=== PATIENT | male | born 1955 | race Caucasian/White ===

== ENCOUNTER → 2017-09-23 | Outpatient (CLI) | payer BC ==
--- NOTE | 2017-09-23 23:02 | MR ---
EXAMINATION TYPE: MR knee LT wo con DATE OF EXAM: 09/23/2017 COMPARISON: NONE HISTORY: Left Knee pain and swelling TECHNIQUE: Multiplanar, multisequence imaging of the left knee is performed without IV contrast. FINDINGS: The anterior and posterior cruciate ligaments are intact. There is knee joint effusion. There is 4.5 x 1.5 cm popliteal cyst. The collateral ligaments are intact. There is patchy abnormal increased sign al in the lateral aspect of the lateral femoral condyle on the T2 images. There is horizontal defect through the anterior and posterior horns of the medial meniscus. There is no definite lateral meniscal tear. There is minor spurring on the patella. There is mild degenerative signal change within the lateral meniscus. IMPRESSION: No evidence of ligamentous tear. Knee joint effusion and popliteal cyst. Horizontal tears of the anterior and posterior horns of the medial meniscus. Degenerative changes wit hin the lateral meniscus. There is a 3 x 1 cm area of bone bruise involving the lateral aspect of the lateral femoral condyle. There is minor hypertrophic spurring of the femoral and tibial condyles.
== END | disposition home or self-care (01) ==
LOC: RADMRIMAIN 19:48
PROVIDERS: ATTEND Orthopaedic Surgery
DX: S83.242A Other tear of medial meniscus, current injury, left knee, initial encounter (principal); M71.22 Synovial cyst of popliteal space [Baker], left knee; S70.12XA Contusion of left thigh, initial encounter; M25.762 Osteophyte, left knee

== ENCOUNTER 2017-11-18 06:02 | Day surgery (SDC) | payer BC ==
[2017-11-15 12:27] VITALS: BMI 28.5
--- NOTE | 2017-11-17 19:20 | HP ---
HISTORY AND PHYSICAL DATE OF SURGERY: 11/18/2017 Pj Vasquez is a 62-year-old patient seen with progressive left knee pain. We discussed treatment options. He elected to proceed with arthroscopy. Consent regarding the procedure was obtained. PAST MEDICAL HISTORY: 1. Hypertension. 2. Hyperlipidemia. 3. Hypothyroidism. PAST SURGICAL HISTORY: 1. Right knee arthroscopy. 2. Biceps tendon surgery. 3. Thyroidectomy. DAILY MEDICATIONS: 1. Atorvastatin. 2. Carvedilol. 3. Losartan. 4. Synthroid. 5. Meloxicam. ALLERGIES: LOVASTATIN. SOCIAL HISTORY: The patient denies current tobacco use. PHYSICAL EVALUATION OF THE LEFT KNEE: Range of motion is 0 to 130 degrees. Tenderness along the medial joint line. Positive medial Bebeto's. Ligaments stable. There is crepitus along the patellofemoral compartment with range of motion. Some pain with patellofemoral compression. Hip rotation without pain. Distal neurovascular exam intact. LEFT KNEE RADIOGRAPHS: Left knee radiographs revealed mild medial lateral and moderate patellofemoral compartment osteoarthritis. Left knee MRI revealed medial meniscal tear. IMPRESSION: Internal derangement, left knee, with medial meniscal tear. PLAN: Left knee arthroscopy with partial meniscectomy and debridement. MMODL / IJN: [id number] /
[~2017-11-18 06:02] MED LIST: DEXAMETHASONE SOD PHOSPHATE 10 MG/ML 1 ML VIAL IV ONE; LACTATED RINGERS 1,000 ML IV SCH; ONDANSETRON 4 MG/2 ML VIAL IVP ONE; ceFAZolin IN SWFI 2 GM/20 ML SYRINGE IVP ONE
[2017-11-18] MEDS ORDERED: LIDOCAINE 1% 20 ML VIAL (10MG/ML) FOR IV START INTRADERMA ONE (06:35)
[2017-11-18] MEDS ORDERED: SCOPOLAMINE 1.5MG/72HR PATCH TRANSDERM ONE (06:39)
[2017-11-18] MEDS ORDERED: PROPOFOL 10 MG/ML 20 ML VIAL IV ONE (07:22)
[2017-11-18] MEDS ORDERED: LIDOCAINE 1% INJ 10MG/ML (20 ML MDV) ONE (07:22)
[2017-11-18] MEDS ORDERED: fentaNYL (PF) 50 MCG/ML 2 ML AMP ONE (07:22)
[2017-11-18] MEDS ORDERED: SODIUM CHLORIDE 0.9% 50 ML with ceFAZolin 2,000 MG IV ONE ×4 (07:22)
[2017-11-18] MEDS ORDERED: MIDAZOLAM 2 MG/2 ML VIAL ONE (07:22)
[2017-11-18] MEDS ORDERED: BUPIVACAINE (PF) 0.25% 30 ML VIAL INTRAARTIC ONE ×2 (07:45→08:13)
[2017-11-18 08:24] VITALS: TEMP 97.7
[2017-11-18] MEDS ORDERED: MORPHINE SULFATE 4 MG/ML SYRINGE IVP ONE (08:31)
[2017-11-18] MEDS ORDERED: KETOROLAC 30 MG/ML 1 ML VIAL IVP ONE (08:32)
[2017-11-18 08:33] VITALS: RESP 16
--- NOTE | 2017-11-18 08:35 | P.OP ---
Date of Procedure: 11/18/17 Preoperative Diagnosis: Internal derangement left knee Postoperative Diagnosis: 1. Tear medial and lateral meniscus left knee 2. Grade 3/4 chondromalacia medial femoral condyle left knee 3. Grade 2/3 chondromalacia patella left knee 4. Partial ACL tear left knee 5. Osteophyte patella left knee 6. Reactive synovitis medial and suprapatellar compartments left knee Procedure(s) Performed: 1. Arthroscopic partial medial and lateral meniscectomy left knee 2. Arthroscopic chondroplasty medial femoral condyle left knee 3. Arthroscopic chondroplasty patella left knee 4. Arthroscopic debridement partial ACL tear left knee 5. Arthroscopic excision osteophyte patella left knee 6. Arthroscopic partial synovectomy medial and super patellar compartments left knee Anesthesia: MALLORIEA, local Surgeon: Sameer Ricks Estimated Blood Loss (ml): 9 Pathology: none sent Condition: stable Disposition: PACU Indications for Procedure: 62-year-old patient seen with progressive left knee pain. After having treatment options discussed, he elected to proceed with arthroscopy. Operative Findings: see description of procedure Description of Procedure: Patient was taken to the operative suite. Patient underwent a general anesthetic by the department of anesthesia. Patient was given preoperative antibiotics. The left lower extremity was placed in a well-padded arthroscopic leg rubio. The left leg was prepped and draped in the normal sterile orthopedic fashion. A lateral parapatellar and suprapatellar incision was made. Trochars were inserted. Arthroscopy was initiated. Suprapatellar pouch revealed diffuse thick reactive synovitis. The patellofemoral joint appeared to articulate congruently. There was grade 2/3 chondromalacia of the patella with some small osteochondral tears. There was a large osteophyte emanating off the medial border of the patella which seem to cause significant chondromalacia changes of the femoral sulcus along the edge.. The scope was guided into the medial gutter. No loose bodies or plica were identified. The scope was then guided into the medial compartment. A medial parapatellar incision was made. Trocar inserted followed by probe. There was a radial tear posterior horn medial meniscus. There were grade 3 and 4 chondromalacia changes of the medial femoral condyle. There was excellent some bony exposure more medially. There was reactive synovitis anteriorly. There were no loose bodies. I performed a partial medial meniscectomy down to stable tissue. I performed a chondroplasty medial femoral condyle. I performed a partial synovectomy. The residual meniscus and osteochondral surfaces were stable. Scope and probe were then guided into the intercondylar notch. Cruciates were identified, probed and found to have some partial tearing of the anterior fibers of the anterior cruciate ligament. I debrided those with a motorized shaver. The residual ACL was stable. The PCL was stable.. The scope and probe were then guided into lateral compartment. There was some superficial tearing along the mid body and posterior horn areas of the lateral meniscus. There were grade 1 chondromalacia changes lateral compartment with no osteochondral tears. There were no loose bodies. I performed a partial lateral meniscectomy down to stable tissue. The residual meniscus was stable. The scope was in guided back into the suprapatellar compartment. I introduced a motorized shaver into the super patellar compartment. I debrided some piecemeal fragments of meniscus. I now introduced a motorized bur and excise that osteophyte. With range of motion of the knee in the osteophyte was completely excised. I now performed a chondroplasty patella followed by partial synovectomy. Shaver was removed. I took one more look on the entire knee and no residual debris was identified. Instruments were now removed from the joint. The joint was infiltrated with .25% Marcaine. Steri-Strips were applied to the portal sites. Sterile dressings were applied. The patient was placed into a KAMRON hose. No tourniquet was utilized. The patient was awakened, transferred to a bed and taken to recovery stable satisfactory condition.
[2017-11-18 09:30] VITALS: BP 126/81; PULSE 60
[2017-11-18] MEDS ORDERED: HYDROcodone/APAP 5-325MG 1 EACH TAB PO ONE (09:35)
== END 2017-11-18 10:09 | disposition home or self-care (01) ==
LOC: OR 06:02
PROVIDERS: ATTEND Orthopaedic Surgery
DX: M23.322 Other meniscus derangements, posterior horn of medial meniscus, left knee (principal); M23.352 Other meniscus derangements, posterior horn of lateral meniscus, left knee; S83.512A Sprain of anterior cruciate ligament of left knee, initial encounter; M25.762 Osteophyte, left knee; M65.862 Other synovitis and tenosynovitis, left lower leg; M94.262 Chondromalacia, left knee; I10 Essential (primary) hypertension; E89.0 Postprocedural hypothyroidism; E78.5 Hyperlipidemia, unspecified; G43.909 Migraine, unspecified, not intractable, without status migrainosus; I25.10 Atherosclerotic heart disease of native coronary artery without angina pectoris; I42.9 Cardiomyopathy, unspecified; Z79.82 Long term (current) use of aspirin; Z79.1 Long term (current) use of non-steroidal anti-inflammatories (NSAID); Z79.899 Other long term (current) drug therapy
CPT/HCPCS: 29880; J2250; J2270; J1100; J2405; J2001; J3010; J1885; J0690; J2704

== ENCOUNTER → 2017-12-03 | Outpatient (CLI) | payer BC ==
--- NOTE | 2017-12-03 13:41 | MR ---
EXAMINATION TYPE: MR knee RT wo con DATE OF EXAM: 12/03/2017 COMPARISON: NONE HISTORY: Pain in right knee TECHNIQUE: Multiplanar, multisequence imaging of the right knee is performed without IV contrast. FINDINGS: MEDIAL MENISCUS: There is some increased signal present within the meniscus which may be due to degen erative change, there is an attenuated appearance of the posterior horn of the medial meniscus, it ap pears somewhat truncated on image #8 of the sagittal data set LATERAL MENISCUS: Increased signal within the meniscus is noted anterior horn is irregular, however, there are cystic foci present at this level which could represent meniscal cysts and associated tear. The posterior horn shows some linear increased signal which extends the articular surface. CRUCIATE LIGAMENTS: The anterior and posterior cruciate ligaments are intact and unremarkable. COLLATERAL LIGAMENTS: The medial collateral ligament and lateral collateral ligament complex are inta ct and unremarkable. EXTENSOR MECHANISM: Visualized quadriceps and patellar tendons are intact. Some increased signal pres ent at the insertion of the quadriceps tendon and patellar tendon may be due to degenerative signal. EFFUSION: No significant suprapatellar joint effusion. POPLITEAL CYST: Semimembranosus gastrocnemius cyst is present but is small measuring only approximat nguyen 9 mm x 5 cm by 5 mm. There may be a small ganglion cyst at this same level measuring 4 cm by 3 to 4 mm.. TRICOMPARTMENT SPACES: Maintained. CARTILAGE: Grade 3 to grade IV chondromalacia present in the medial compartment. Grade 2 to grade III chondromalacia suspected in the posterior patella. BONE MARROW SIGNAL: Some minimal geode formation present at the intracondylar notch level. OTHER: Spurring is noted laterally greater than medially. Fluid signal of the origin of the medial l ateral belly of the gastrocnemius may be due to local strain, partial tear or ganglion formation. IMPRESSION: Osteoarthritis. Tear of the posterior horn the lateral meniscus, possibly anterior horn. Truncated ap pearance may be due to degenerative tear posterior horn of the lateral meniscus. Additional findings above.
== END | disposition home or self-care (01) ==
LOC: RADMRIMAIN 08:34
PROVIDERS: ATTEND Orthopaedic Surgery
DX: M17.11 Unilateral primary osteoarthritis, right knee (principal); S83.206A Unspecified tear of unspecified meniscus, current injury, right knee, initial encounter; M71.21 Synovial cyst of popliteal space [Baker], right knee; M94.261 Chondromalacia, right knee

== ENCOUNTER → 2017-12-17 | Outpatient (CLI) | payer BC ==
[2017-12-17 13:33] LABS: Basophils % (A) 1 %; Eosinophils # (A) 0.2 k/uL (0-0.7); Eosinophils % (A) 4 %; HCT 43.4 % (39.0-53.0); HGB 14.9 gm/dL (13.0-17.5); Lymphocytes # (A) 1.5 k/uL (1.0-4.8); Lymphocytes % (A) 28 %; MCH 29.9 pg (25.0-35.0); MCHC 34.3 g/dL (31.0-37.0); MCV 87.2 fL (80.0-100.0); Mean Platelet Volume 6.6; Monocytes # (A) 0.5 k/uL (0-1.0); Monocytes % (A) 8 %; Neutrophils % (A) 56 %; Platelet Count 209 k/uL (150-450); RBC 4.98 m/uL (4.30-5.90); RDW 12.3 % (11.5-15.5); WBC 5.4 k/uL (3.8-10.6)
[2017-12-17 13:47] LABS: Potassium 4.2 mmol/L (3.5-5.1)
== END ==
LOC: LABPAT 12:28
PROVIDERS: ATTEND Orthopaedic Surgery
DX: Z01.812 Encounter for preprocedural laboratory examination (principal); M23.91 Unspecified internal derangement of right knee
CPT/HCPCS: 36415; 80051; 85025

== ENCOUNTER 2017-12-22 08:10 | Day surgery (SDC) | payer BC ==
[2017-12-20 10:49] VITALS: BMI 28.5
--- NOTE | 2017-12-21 13:32 | HP ---
HISTORY AND PHYSICAL Surgery is scheduled for 12/22/2017. Pj Vasquez is a 62-year-old patient seen with progressive right knee pain. We discussed treatment options. He elected to proceed with arthroscopy. Consent was obtained. PAST MEDICAL HISTORY: Hyperlipidemia, hypertension, hypothyroidism. PAST SURGICAL HISTORY: Right knee arthroscopy, right elbow surgery, thyroidectomy. DAILY MEDS: 1. Atorvastatin. 2. Carvedilol. 3. Losartan. 4. Meloxicam. 5. Synthroid. ALLERGIES: Allergies are LOVASTATIN. SOCIAL HISTORY: Patient denies tobacco use. PHYSICAL EXAMINATION: Physical evaluation of the right knee range of motion is 0-120 degrees. Tenderness along the medial and lateral joint lines. Positive medial Bebeto's. Positive lateral Bebeto's. Crepitus medial patellofemoral compartments. Ligaments stable. Hip rotation without pain. Distal neurovascular exam intact Right knee radiographs revealed moderate to severe medial and moderate patellofemoral compartment osteoarthritis. MRI revealed lateral meniscal tear. IMPRESSION: 1. Internal derangement, right knee with meniscal tear. 2. Hypertension. 3. Hypothyroidism. 4. Hyperlipidemia. PLAN: Right knee arthroscopy with partial meniscectomy and debridement. MMODL / IJN: [id number] /
[~2017-12-22 08:10] MED LIST changes: +LIDOCAINE 1% 20 ML VIAL (10MG/ML) FOR IV START INTRADERMA PRN; +MORPHINE SULFATE 2 MG/ML SYRINGE IV PRN; +SCOPOLAMINE 1.5MG/72HR PATCH TRANSDERM ONE
[2017-12-22] MEDS ORDERED: LIDOCAINE 1% INJ 10MG/ML (20 ML MDV) ONE (09:50)
[2017-12-22] MEDS ORDERED: PROPOFOL 10 MG/ML 20 ML VIAL IV ONE (09:50)
[2017-12-22] MEDS ORDERED: MIDAZOLAM 2 MG/2 ML VIAL ONE (09:50)
[2017-12-22] MEDS ORDERED: fentaNYL (PF) 50 MCG/ML 2 ML AMP ONE (09:50)
[2017-12-22] MEDS ORDERED: BUPIVACAINE (PF) 0.25% 30 ML VIAL INTRAARTIC ONE ×2 (09:54→10:21)
--- NOTE | 2017-12-22 10:40 | P.OP ---
Date of Procedure: 12/22/17 Preoperative Diagnosis: Internal derangement right knee Postoperative Diagnosis: 1. Tear medial and lateral meniscus right knee 2. Grade 2/3 chondromalacia medial femoral condyle right knee 3. Grade 1/2 chondromalacia patella right knee 4. Reactive synovitis medial and suprapatellar compartments right knee Procedure(s) Performed: 1. Arthroscopic partial medial and lateral meniscectomy right knee 2. Arthroscopic chondroplasty medial femoral condyle right knee 3. Arthroscopic chondroplasty patella right knee 4. Arthroscopic partial synovectomy medial and suprapatellar compartments right knee Implants: none Anesthesia: MALLORIEA, local Surgeon: Sameer Ricks Estimated Blood Loss (ml): 11 Pathology: none sent Condition: stable Disposition: PACU Indications for Procedure: 62-year-old patient seen with progressive right knee pain. After treatment options were discussed, he elected to proceed with arthroscopy. Operative Findings: see description of procedure Description of Procedure: Patient was taken to the operative suite. Patient underwent a general anesthetic by the department of anesthesia. Patient was given preoperative antibiotics. The right lower extremity was placed in a well-padded arthroscopic leg rubio. The right leg was prepped and draped in the normal sterile orthopedic fashion. A lateral parapatellar and suprapatellar incision was made. Trochars were inserted. Arthroscopy was initiated. Suprapatellar pouch revealed diffuse thick reactive synovitis. The patellofemoral joint appeared to articulate congruently. There was grade 1/2 chondromalacia of the patella with some small osteochondral tears present. The scope was guided into the medial gutter. No loose bodies or plica were identified. The scope was then guided into the medial compartment. A medial parapatellar incision was made. Trocar inserted followed by probe. There was a tear involving the posterior horn medial meniscus. There were grade 2/3 chondromalacia changes of the medial femoral condyle with some osteochondral tears present. There was reactive synovitis anteriorly. I performed a partial medial meniscectomy down to stable tissue. I performed a chondroplasty of the medial femoral condyle down to stable tissue followed by partial synovectomy. The residual meniscus and osteochondral surfaces were found to be stable. There was good decompression of the synovitis. Scope and probe were then guided into the intercondylar notch. Cruciates were identified, probed and found to be stable. The scope and probe were then guided into lateral compartment. There was a radial tear involving the anterior horn lateral meniscus. There were some grade 1 chondromalacia changes of lateral compartment but no osteochondral tears were present. There was no significant synovitis present. I performed a partial lateral meniscectomy down to stable tissue. The residual meniscus was stable. The scope was in guided back into the suprapatellar compartment. I introduced a motorized shaver into the suprapatellar compartment. I performed a chondroplasty of the patella down to stable tissue. I debrided some piecemeal fragments of meniscus I encountered. I performed a partial synovectomy. The residual osteochondral surface was found to be stable. I took one more look around the entire knee, no residual debris. Instruments were now removed from the joint. The joint was infiltrated with .25% Marcaine. Steri-Strips were applied to the portal sites. Sterile dressings were applied. The patient was placed into a KAMRON hose. No tourniquet was utilized. The patient was awakened, transferred to a bed and taken to recovery stable satisfactory condition.
[2017-12-22 10:41] VITALS: TEMP 97.3
[2017-12-22] MEDS ORDERED: KETOROLAC 30 MG/ML 1 ML VIAL IVP ONE (11:12)
[2017-12-22 11:44] VITALS: RESP 18
[2017-12-22 12:06] VITALS: BP 115/70; PULSE 63
== END 2017-12-22 12:11 | disposition home or self-care (01) ==
LOC: OR 08:10
PROVIDERS: ATTEND Orthopaedic Surgery
DX: M23.341 Other meniscus derangements, anterior horn of lateral meniscus, right knee (principal); M23.321 Other meniscus derangements, posterior horn of medial meniscus, right knee; E78.5 Hyperlipidemia, unspecified; I10 Essential (primary) hypertension; E89.0 Postprocedural hypothyroidism; M22.41 Chondromalacia patellae, right knee; M65.861 Other synovitis and tenosynovitis, right lower leg; Z88.8 Allergy status to other drugs, medicaments and biological substances; Z85.850 Personal history of malignant neoplasm of thyroid; Z79.899 Other long term (current) drug therapy

== ENCOUNTER 2017-12-30 10:17 | Emergency (ER) | payer BC ==
[2017-12-30 10:22] VITALS: PULSE 67
--- NOTE | 2017-12-30 10:44 | ED ---
Extremity Problem HPI - General Chief complaint: Extremity Problem,Nontraumatic Stated complaint: post op poss blood clot rt leg Time Seen by Provider: 12/30/17 10:29 Source: patient, RN notes reviewed Mode of arrival: wheelchair Limitations: no limitations - History of Present Illness Initial comments: This is a 62-year-old male presents emergency Department chief complaint of right leg pain and swelling. Patient states that he had surgery on the with Dr. Ricks. Patient states that he has been feeling much better. But Over the last 3-4 days he has noticed increased swelling to his right leg, pain in his right calf. He is concern for possible blood clot. Patient states that there is no chest pain or shortness of breath. He has no history of DVT. MD Complaint: extremity pain - Related Data Home Medications Medication Instructions Recorded Confirmed Ascorbic Acid [Vitamin C] 1,000 mg PO DAILY 11/15/17 12/30/17 Aspirin [Adult Low Dose Aspirin EC] 81 mg PO DAILY 11/15/17 12/30/17 Atorvastatin [Lipitor] 20 mg PO HS 11/15/17 12/30/17 Carvedilol [Coreg] 3.125 mg PO BID 11/15/17 12/30/17 Cholecalciferol (Vitamin D3) 2,000 unit PO DAILY 11/15/17 12/30/17 [Vitamin D3] Fish Oil/Dha/Epa [Fish Oil 1,200 1 cap PO DAILY 11/15/17 12/30/17 mg Fish Oil] Fluticasone Propionate [Flonase 1 spray EA NOSTRIL DAILY PRN 11/15/17 12/30/17 Allergy Relief] Levothyroxine Sodium [Synthroid] 175 mcg PO QAM 11/15/17 12/30/17 Losartan [Cozaar] 25 mg PO QAM 11/15/17 12/30/17 Meloxicam [Mobic] 7.5 mg PO DAILY PRN 11/15/17 12/30/17 SUMAtriptan SUCCINATE [Imitrex] 50 mg PO DAILY PRN 11/15/17 12/30/17 Pseudoephedrine [Sudafed] 30 mg PO Q4H PRN 12/30/17 12/30/17 Allergies Allergy/AdvReac Type Severity Reaction Status Date / Time hydrocodone [From [place]] Allergy Itching Verified 12/30/17 10:37 lovastatin Allergy See Comment Verified 12/30/17 10:37 Review of Systems ROS Statement: Those systems with pertinent positive or pertinent negative responses have been documented in the HPI. ROS Other: All systems not noted in ROS Statement are negative. Past Medical History Past Medical History: Cancer, Hyperlipidemia, Osteoarthritis (OA), Thyroid Disorder Additional Past Medical History / Comment(s): Thyroid cancer 10-12 yrs ago, radiation tx, nonischemic cardiomyopathy, "function normal last time at Dr." History of Any Multi-Drug Resistant Organisms: None Reported Past Surgical History: Hernia Repair, Orthopedic Surgery Additional Past Surgical History / Comment(s): left knee scope 11/18/17, Thyroidectomy, sinus surgery, bilateral knee scope, bicep tendon surgery Past Anesthesia/Blood Transfusion Reactions: Previous Problems w/ Anesthesia Additional Past Anesthesia/Blood Transfusion Reaction / Comment(s): "very sore throat, post op" Past Psychological History: No Psychological Hx Reported Smoking Status: Former smoker Past Alcohol Use History: Occasional Past Drug Use History: None Reported - Past Family History Father Family Medical History: Cancer Additional Family Medical History / Comment(s): kidney cancer Sister(s) Family Medical History: Cancer Additional Family Medical History / Comment(s): Thyroid cancer General Exam Limitations: no limitations General appearance: alert, in no apparent distress Head exam: Present: atraumatic, normocephalic, normal inspection Respiratory exam: Present: normal lung sounds bilaterally. Absent: respiratory distress, wheezes, rales, rhonchi, stridor Cardiovascular Exam: Present: regular rate, normal rhythm, normal heart sounds. Absent: systolic murmur, diastolic murmur, rubs, gallop, clicks Extremities exam: Present: other (Right leg there is noted swelling from just proximal to the knee to the foot there is surgical incisions healing to the right knee patient has good range of motion there is no warmth or erythema the leg is neurovascularly intact) Skin exam: Present: warm, dry, intact, normal color. Absent: rash Course Vital Signs 12/30/17 12/30/17 10:19 11:23 Temperature 98.3 F 97.8 F Pulse Rate 67 67 Respiratory 20 18 Rate Blood Pressure 134/88 119/81 O2 Sat by Pulse 97 100 Oximetry Medical Decision Making - Medical Decision Making 62-year-old male presented to the ER for concerns of blood clot. Patient had all shots negative for DVT. Patient's swelling is related to his recent surgery. Patient will be discharged advised to follow-up with surgeon and return for any worsening symptoms. Disposition Clinical Impression: Leg edema, right Disposition: HOME SELF-CARE Condition: Stable Instructions: Leg Edema (ED) Additional Instructions: Please return to the Emergency Department if symptoms worsen or any other concerns. Is patient prescribed a controlled substance at d/c from ED?: No Referrals: Rubens العراقي MD [Primary Care Provider] - 1-2 days Time of Disposition: 11:41
--- NOTE | 2017-12-30 11:20 | US ---
EXAMINATION TYPE: US venous doppler duplex LE RT DATE OF EXAM: 12/30/2017 10:30 AM COMPARISON: US 2010 CLINICAL HISTORY: Pain. Right calf pain following right knee surgery SIDE PERFORMED: Right TECHNIQUE: The lower extremity deep venous system is examined utilizing real time linear array sonog candido with graded compression, doppler sonography and color-flow sonography. VESSELS IMAGED: External Iliac Vein (EIV) Common Femoral Vein Deep Femoral Vein Greater Saphenous Vein * Femoral Vein Popliteal Vein Small Saphenous Vein * Proximal Calf Veins (* superficial vessels) Grayscale, color doppler, spectral doppler imaging performed of the deep veins of the right lower ext remity. There is normal flow, compressibility, vascular waveforms. Right Leg: Appears negative for DVT IMPRESSION: No sonographic evidence of deep venous thrombosis within the right lower extremity.
[2017-12-30 11:25] VITALS: BP 119/81; RESP 18; TEMP 97.8
== END 2017-12-30 12:01 | disposition home or self-care (01) ==
LOC: EC 10:17
DX: R60.0 Localized edema (principal); E78.5 Hyperlipidemia, unspecified; I25.5 Ischemic cardiomyopathy; Z85.850 Personal history of malignant neoplasm of thyroid; Z87.891 Personal history of nicotine dependence; Z79.02 Long term (current) use of antithrombotics/antiplatelets; Z79.82 Long term (current) use of aspirin; Z79.899 Other long term (current) drug therapy; Z98.890 Other specified postprocedural states
CPT/HCPCS: 99283

== ENCOUNTER → 2021-06-24 | Outpatient (CLI) | payer MEDICARE, BC ==
--- NOTE | 2021-06-24 14:59 | XR ---
Bilateral RIBS HISTORY: Rib pain 4 views of each set of ribs are submitted No comparisons There is no evident displaced rib fracture. Bone mineralization is normal. Multilevel thoracic spondy losis is seen. Lungs are clear. No pleural effusion or pneumothorax. Aorta is dense. IMPRESSION: There is multilevel thoracic and lumbar spondylosis present. No evident rib abnormality, bone scan could be performed as indicated for additional evaluation.
== END | disposition home or self-care (01) ==
LOC: RADXRMAIN 12:38
PROVIDERS: ATTEND Internal Medicine
DX: R07.81 Pleurodynia (principal)
CPT/HCPCS: 71110

== ENCOUNTER → 2021-07-11 | Outpatient (CLI) | payer MEDICARE, BC | END | disposition home or self-care (01) | LOC: LABWHC1 07:02 | PROVIDERS: ATTEND Orthopaedic Surgery Sports Medicine | DX: Z20.822 Contact with and (suspected) exposure to COVID-19 (principal) | CPT/HCPCS: U0003; U0005 ==

== ENCOUNTER → 2021-07-25 | Outpatient (CLI) | payer MEDICARE, BC | END | disposition home or self-care (01) | LOC: LABWHC1 07:19 | PROVIDERS: ATTEND Orthopaedic Surgery Sports Medicine | DX: Z20.822 Contact with and (suspected) exposure to COVID-19 (principal) | CPT/HCPCS: U0003; C9803; U0005 ==

== ENCOUNTER → 2021-09-30 | Outpatient (CLI) | payer MEDICARE, BC ==
[2021-09-30 15:22] LABS: ALT 23 U/L (10-49); AST 26 U/L (14-35); African American GFR (CKD) 100.5 (60.0-200.0); Albumin 4.5 g/dL (3.8-4.9); Alkaline Phosphatase 88 U/L (41-126); Blood Urea Nitrogen 13.3 mg/dL (9.0-27.0); Calcium 9.2 mg/dL (8.7-10.3); Carbon Dioxide 21.3 mmol/L (20.0-27.5); Chloride 105 mmol/L (96-109); Chol/HDL Ratio 2.63 Ratio; Glucose 94 mg/dL (70-110); LDL Cholesterol,Calculated 121.3 mg/dL (0.0-131.0); Non-African American GFR(CKD) 86.7 (60.0-200.0); Potassium 4.2 mmol/L (3.5-5.5); Sodium 142 mmol/L (135-145); Total Protein 6.7 g/dL (6.2-8.2)
--- NOTE | 2021-09-30 17:55 | BD ---
EXAMINATION TYPE: Axial Bone Density DATE OF EXAM: 09/30/2021 COMPARISON: 03/12/2014 CLINICAL HISTORY: 66-year-old male M81.0, osteoporosis Height: 69 IN Weight: 186 LBS RISK FACTORS HISTORY OF: Active: YES Diet low in dairy products/other sources of calcium: YES MEDICATIONS: Thyroid Medications: YES Which medication: SYNTHROID How Lon YEARS Additional Medications: VIT D, SYNTHROID, LOSARTAN, MELOXICAM, CRESTOR, ASPIRIN, SUMATRIPTAN, FLONASE , Additional History: THYROID CANCER WITH RADIATION EXAM MEASUREMENTS: Bone mineral densitometry was performed using the [employer] System. Bone mineral density as measured about the Lumbar spine is: ----- L1-L4(G/cm2): 1.268 T Score Values are as follows: ----- L2: -0.7 ----- L3: 0.9 ----- L4: 2.5 ----- L1-L4: 0.7 Bone mineral density has: Increased 0.1% since study of: 03/12/2014 Bone mineral density about the R hip (g/cm2): 0.779 Bone mineral density about the L hip (g/cm2): 0.854 T Score values are as follows: -----R Neck: -1.9 -----L Neck: -1.3 -----R Total: -2.0 -----L Total: -1.1 Bone mineral density has: Decreased -9.4% since study of: 03/12/2014 IMPRESSION: Osteopenia (T Score between -2.5 and -1). There is slightly increased risk of fracture and the patient may be considered for treatment. Re-Screen 2-5 years. NOTE: T-SCORE=SD OF THE YOUNG ADULT MEAN.
== END | disposition home or self-care (01) ==
LOC: RADBDWWP 07:21
PROVIDERS: ATTEND Internal Medicine Endocrinology, Diabetes & Metabolism
DX: C73 Malignant neoplasm of thyroid gland (principal); E55.9 Vitamin D deficiency, unspecified; E78.2 Mixed hyperlipidemia; M85.89 Other specified disorders of bone density and structure, multiple sites
CPT/HCPCS: 77080; 80053; 80061; 82306; 84432; 84439; 84443

== ENCOUNTER → 2024-02-29 | Outpatient (CLI) | payer MEDICARE, BC ==
[2024-02-29 13:47] VITALS: BP 132/82; PULSE 56; RESP 16; TEMP 97.7
--- NOTE | 2024-02-29 16:45 | P.SLEEP ---
History of Present Illness H&P Date: 02/29/24 This is a 68-year-old male patient who was referred to me regarding a recent diagnosis of obstructive sleep apnea that has been established by home sleep study that was done through the primary care physician. The patient has history of snoring. He wakes up probably once in the middle of the night complaining of a dry mouth. At times he also wakes up with urination. 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 He typically goes to bed at around 9 PM and wakes up between 7 to 8 AM in the morning. He is currently retired. He has no major hypersomnia or sleepiness during the day. His current [place] score is at 7. No recent weight gain. His weight has remained stable over the years without any major changes. No sleep paralysis. No hallucinations. No cataplexy. No parasomnias. No anxiety or depression. No nocturnal palpitation or heartburn or chest pain or shortness of breath. Denies waking up choking or gasping for air. No previous history of motor vehicle accident because of feeling drowsy or sleepy. He is known to have thyroid cancer and has undergone thyroidectomy currently on thyroid hormone replacement. He also has history of hypertension hyperlipidemia and BPH and osteoarthritis. No cardiovascular complications. No myocardial infarction, congestive heart failure or stroke. The patient's home sleep study was completed on 03/21/2023. At that time, the patient used to weigh 198 pounds. Based on the sleep study, the patient had a total of 113 obstructive hypopneas and 4 obstructive apneas and is resulting AHI was 9.3. He did not encounter significant nocturnal oxygen saturations and the patient spent only less than 0.5% of the sleep study with pain pulse ox of 85 to 89%. The lowest pulse ox was 88%. Review of Systems All systems: negative (Please refer to the above-mentioned positive findings. Otherwise the review of system is negative.) Past Medical History Past Medical History: Cancer, Hyperlipidemia, Hypertension, Osteoarthritis (OA), Thyroid Disorder Additional Past Medical History / Comment(s): Thyroid cancer 10-12 yrs ago, radiation tx, nonischemic cardiomyopathy, "function normal last time at [facility] History of Any Multi-Drug Resistant Organisms: None Reported Past Surgical History: Hernia Repair, Joint Replacement, Orthopedic Surgery Additional Past Surgical History / Comment(s): left knee scope 11/18/17,Thyroidectomy, sinus surgery, bilateral knee scope, bicep tendon surgery, carpal tunnel bilateral wrist, shoulder , knee replacement, Past Anesthesia/Blood Transfusion Reactions: Previous Problems w/ Anesthesia Additional Past Anesthesia/Blood Transfusion Reaction / Comment(s): "very sore throat, post op" Past Psychological History: No Psychological Hx Reported Smoking Status: Never smoker Past Alcohol Use History: Occasional Additional Past Alcohol Use History / Comment(s): Quit smoking in his 30's. 1ppd, smoked 10-15yrs Past Drug Use History: None Reported - Past Family History Father Family Medical History: Cancer Additional Family Medical History / Comment(s): kidney cancer Sister(s) Family Medical History: Cancer Additional Family Medical History / Comment(s): Thyroid cancer Medications and Allergies Home Medications Medication Instructions Recorded Confirmed Type Ascorbic Acid [Vitamin C] 1,000 mg PO DAILY 11/15/17 12/30/17 History Aspirin [Adult Low Dose Aspirin EC] 81 mg PO DAILY 11/15/17 02/29/24 History Atorvastatin [Lipitor] 20 mg PO HS 11/15/17 12/30/17 History Cholecalciferol (Vitamin D3) 2,000 unit PO DAILY 11/15/17 02/29/24 History [Vitamin D3] Fluticasone Propionate [Flonase 1 spray EA NOSTRIL DAILY PRN 11/15/17 02/29/24 History Allergy Relief] Levothyroxine Sodium [Synthroid] 175 mcg PO QAM 11/15/17 02/29/24 History Losartan [Cozaar] 25 mg PO QAM 11/15/17 02/29/24 History Meloxicam [Mobic] 7.5 mg PO DAILY PRN 11/15/17 02/29/24 History SUMAtriptan succinate [Imitrex] 50 mg PO DAILY PRN 11/15/17 02/29/24 History carvediloL [Coreg] 3.125 mg PO BID 11/15/17 02/29/24 History Pseudoephedrine [Sudafed] 30 mg PO Q4H PRN 12/30/17 02/29/24 History Tamsulosin [Flomax] 0.4 mg PO DAILY 02/29/24 02/29/24 History Allergies Allergy/AdvReac Type Severity Reaction Status Date / Time hydrocodone [From [place]] Allergy Itching Verified 10/19/22 00:50 lovastatin Allergy See Comment Verified 10/19/22 00:50 Physical Exam Vitals: Vital Signs Temp Pulse Resp BP Pulse Ox 02/29/24 13:45 97.7 F 56 L 16 132/82 97 Intake and Output 02/29/24 02/29/24 02/29/24 06:59 14:59 22:59 Other: Weight 89.358 kg The patient appeared well nourished and normally developed. Vital signs as documented. Head exam is unremarkable. No scleral icterus or corneal arcus noted. Neck is without jugular venous distension, thyromegaly, or carotid bruits. Carotid upstrokes are brisk bilaterally. Lungs are clear to auscultation and percussion. Cardiac exam reveals the PMI to be normally sized and situated. Rhythm is regular. First and second heart sounds normal. No murmurs, rubs or gallops. Abdominal exam reveals normal bowel sounds, no masses, no organomegaly and no aortic enlargement. Extremities are nonedematous and both femoral and pedal pulses are normal. Examination of the skin revealed no evidence of significant rashes, suspicious appearing nevi or other concerning lesions. Neurologically, the patient is awake and alert and the patient does not have any focal neurological deficit. Cranial nerves are essentially intact. Assessment and Plan Plan: Obstructive sleep apnea, mild in severity based on a home sleep study that was done on 03/21/2023. No significant nocturnal oxygen desaturations and the patient's apnea hypopnea index was 9.3. No interval changes body weight and the patient carries a body mass index of 29. No hypersomnia or sleepiness during the day. His sleep is not disrupted. Snoring related to above History of thyroid cancer with previous thyroidectomy currently on Synthroid Hypertension Hyperlipidemia BPH Osteoarthritis Plan I had a nice discussion with the patient discussing with him different treatment options for mild obstructive sleep apnea. Obviously, the patient is not having any major sleep disturbance and he denies having any significant hypersomnia or sleepiness during the day. As such, conservative measures are acceptable including weight management, sleeping on his side, and keeping the head of the bed elevated at 90 degrees. I also offered him the possibility of an oral appliance as the patient has history of grinding and he is currently wearing a bite block. He is going to talk it over with his dentist and see if he can be upgraded from a bite guard to an oral appliance. I do not see the need for CPAP therapy at this point as the patient's disease is mild and he is asymptomatic and he is not going to see any significant impact on his health in general and his disease severity is not a significant risk factor for cardiovascular health. As such, he is going to proceed with conservative measures with the possibility of obtaining an oral appliance. He will see him back in the future should his condition decompensates. Answered all of his questions to his satisfaction. Will continue to follow. Sleep Note - Sleep Data ESS Total: 7 - Sleep Note Sleep Note: Temperature: 97.7 F Pulse Rate: 56 Respiratory Rate: 16 Blood Pressure: 132/82 SpO2: 97 Height: 5 ft 9 in Weight: 89.358 kg BMI: Neck Circumference: 16.5
== END | disposition home or self-care (01) ==
LOC: 3 N SLEEP 13:15
PROVIDERS: ATTEND Internal Medicine Critical Care Medicine
DX: G47.33 Obstructive sleep apnea (adult) (pediatric) (principal); I10 Essential (primary) hypertension; E78.5 Hyperlipidemia, unspecified; N40.0 Benign prostatic hyperplasia without lower urinary tract symptoms; M19.90 Unspecified osteoarthritis, unspecified site; E89.0 Postprocedural hypothyroidism; Z85.850 Personal history of malignant neoplasm of thyroid; Z79.890 Hormone replacement therapy; Z88.5 Allergy status to narcotic agent; Z88.8 Allergy status to other drugs, medicaments and biological substances; Z79.899 Other long term (current) drug therapy; Z87.891 Personal history of nicotine dependence
CPT/HCPCS: 99211

== ENCOUNTER → 2024-04-06 | Outpatient (CLI) | payer MEDICARE, BC ==
--- NOTE | 2024-04-07 08:39 | BD ---
EXAMINATION TYPE: Axial Bone Density DATE OF EXAM: 04/06/2024 CLINICAL HISTORY: 69 years old Male. ICD-10 CODE: M85.851 OTH DISRD OF BONE DENSITY AND STRUCTURE, R Height: 69in Weight: 195lb FRAX RISK QUESTIONS: History of Fracture in Adulthood: yes Secondary Osteoporosis: RISK FACTORS HISTORY OF: MEDICATIONS: Thyroid Medications: Which medication: Synthroid How Long: about 20 years EXAM MEASUREMENTS: Bone mineral densitometry was performed using the [employer] System. Bone mineral density as measured about the Lumbar spine is: ----- L1-L4(G/cm2): 1.329 T Score Values are as follows: ----- L1: 0.3 ----- L2: -0.3 ----- L3: 1.4 ----- L4: 3.1 ----- L1-L4: 1.2 Z Score Values are as follows: ----- L1: 0.2 ----- L2: -0.5 ----- L3: 1.2 ----- L4: 2.9 ----- L1-L4: 1.1 Bone mineral density has: Increased 4.8% since study of: 09-30-21 Bone mineral density about the R hip (g/cm2): 0.827 Bone mineral density about the L hip (g/cm2): 0.827 T Score values are as follows: -----R Neck: -1.5 -----L Neck: -1.5 -----R Total: -1.4 -----L Total: -1.4 Z Score values are as follows: -----R Neck: -0.9 -----L Neck: -0.9 -----R Total: -1.4 -----L Total: -1.4 Bone mineral density has: Increased 2% since study of: 09-30-21 FRAX%s: The graph provided illustrates a 11.8% chance for a major osteoporotic fx and a 2.7% chance f or the hips probability for fx in 10 years time. IMPRESSION: Osteopenia (T Score between -2.5 and -1). There is slightly increased risk of fracture and the patient may be considered for treatment. Re-Screen 2-5 years. NOTE: T-SCORE=SD OF THE YOUNG ADULT MEAN.
== END | disposition home or self-care (01) ==
LOC: RADBDWWP 11:24
PROVIDERS: ATTEND Internal Medicine
DX: M85.89 Other specified disorders of bone density and structure, multiple sites (principal)
CPT/HCPCS: 77080